=== PATIENT | male | born 1995 | race Caucasian/White ===

== ENCOUNTER 2016-05-17 11:30 | Emergency (ER) | payer OTHER ==
[~2016-05-17] VITALS: Ht 177.8 cm; Wt 113.1 kg
[2016-05-17 11:34] VITALS: Ht 177.8 cm; Wt 113.1 kg
[2016-05-17] MEDS ORDERED: NAPR1TAB9 PO (11:43)
[2016-05-17] MEDS ORDERED: OXYC-57 PO (11:43)
[2016-05-17 12:58] LABS: HEMATOCRIT 44.5 % (42-52); MEAN CELL VOLUME 84.9 fL (80-100); MEAN CORPUSCULAR HEMOGLOBIN 30.7 pg (25-34); MEAN CORPUSCULAR HGB CONC 36.2 g/dl (32-36); MEAN PLATELET VOLUME 10.5 fL (7.4-10.4); PLATELET COUNT 214 K/uL (130-400); RED BLOOD COUNT 5.24 M/uL (4.7-6.1); WHITE BLOOD COUNT 7.11 K/uL (4.8-10.8)
[2016-05-17 13:14] LABS: INR 1.1 (0.9-1.1); PARTIAL THROMBOPLASTIN RATIO 1.1; PROTHROMBIN TIME (PATIENT) 11.4 SECONDS (9.0-12.0)
[2016-05-17 13:16] LABS: BUN/CREATININE RATIO 15.9 (10-20); CALCIUM 9.6 mg/dl (8.5-10.1); CREATININE 0.82 mg/dl (0.60-1.40); POTASSIUM 4.1 mmol/L (3.5-5.1)
--- NOTE | 2016-05-17 13:25 | DIAGNOSTIC IMAGING REPORT ---
LEFT UPPER EXTREMITY VENOUS DOPPLER CLINICAL HISTORY: Left arm pain and weakness. Recent surgery. COMPARISON STUDY: No previous studies for comparison. FINDINGS: The left internal jugular, subclavian, axillary, brachial, basilic, radial and ulnar veins are patent. No thrombus is identified within the left upper extremity. IMPRESSION: No deep venous thrombus within the left upper extremity. Electronically signed by: Julio Iraheta M.D. 05/17/2016 1:23 PM Dictated Date/Time: 05/17/2016 1:22 PM
--- NOTE | 2016-05-17 13:27 | DIAGNOSTIC IMAGING REPORT ---
LEFT UPPER EXTREMITY ULTRASOUND CLINICAL HISTORY: Left arm pain and weakness. Recent left shoulder surgery. Palpable lump. COMPARISON STUDY: No previous studies for comparison. FINDINGS: No mass, fluid collection or other sonographic abnormality was identified within the posterior lateral aspect of the left upper arm at site of palpable abnormality. IMPRESSION: No sonographic abnormality identified within the posterior lateral aspect of the left upper arm at site of palpable abnormality. Electronically signed by: Julio Irahtea M.D. 05/17/2016 1:25 PM Dictated Date/Time: 05/17/2016 1:23 PM
[2016-05-17 13:29] LABS: ALB/GLOB RATIO 1.5 (0.9-2)
--- NOTE | 2016-05-17 14:22 | EMERGENCY ROOM VISIT NOTE ---
ED Visit Note First contact with patient: 12:18 CHIEF COMPLAINT: Left upper arm pain and swelling 2 days after shoulder surgery HISTORY OF PRESENT ILLNESS: Patient is a [id number] 21-year-old white male directed to the emergency department by his out of the area orthopedic surgeon for a possible DVT of the left upper extremity. Patient had arthroscopic labral repair surgery on April 13 by an orthopedic surgeon at the [facility]. He states that he has had an uneventful postoperative course. He is still wearing a sling/shoulder immobilizer. He is generally just using Aleve for discomfort. He is performing physical therapy exercises as instructed. He states that 2 days ago, he noted a "lump" in the left upper arm near his tricep. He called his surgeon and was told to come to the emergency department for evaluation. He notes some increased warmth, pain to palpation and feels like there is some induration over the area in question. He does also note some discomfort in the antecubital space and some discomfort in the anterior shoulder that comes very slightly into the chest. He denies any true chest pain, palpitations or shortness of breath. No back pain. No prior history of DVT or clotting disorder. He rates his pain a 4.5/ 10. REVIEW OF SYSTEMS:Review of systems as per HPI. All other systems reviewed were negative. 10 systems reviewed. PMH: Electronic medical records are reviewed and summarized as above/below. See Problem List. SOCIAL HISTORY: Patient is a college student who lives locally. Nonsmoker. PHYSICAL EXAM: Vital Signs: Reviewed Nurse's notes. CONSTITUTIONAL: Patient is a well-appearing 21-year-old white male who is awake and alert and in no acute distress. HEART: Regular rate and rhythm without murmurs, ectopy, gallops, or rubs. LUNGS: Clear to auscultation and breath sounds equal, no wheezes, rales, or rhonchi. NEUROLOGICAL: Alert oriented, coherent. PERRL, EOMs full, gait normal. EXTREMITIES: Left upper extremity is in a shoulder immobilizer. This was removed. He has well-healed arthroscopic surgical incisions over the anterior and lateral left shoulder without signs of infection. No significant soft tissue swelling, no erythema, increased warmth or induration. The area in question in the anterior lateral aspect of the left upper arm is slightly tender to palpation, there is no increased warmth or induration. No fluctuance. He does also have some generalized soft tissue discomfort in the biceps region and in the antecubital space, but there are no palpable cords or lymphangitic streaking noted. Pulses in the left upper extremity are easily palpable. They are symmetrical bilaterally. Capillary refills less than 2 seconds. Range of motion of the fingers, wrist and elbow are full and nontender. The shoulder range of motion is not assessed due to his post surgical status. EMERGENCY DEPARTMENT COURSE: Ultrasound exam of the left upper extremity does not demonstrate any evidence for DVT. Localized ultrasound examination over the area in question did not demonstrate any soft tissue abnormality. The patient was reassured. His symptoms could be related to a seroma or hematoma, possible muscle spasm due to his recent surgery. He does not have any evidence for septic joint, wound infection, cellulitis or superficial thrombophlebitis. He was encouraged to continue all of his postoperative instructions according to his surgeon, and to follow-up with his surgeon as he has scheduled. He was discharged home in good condition. LEFT UPPER EXTREMITY ULTRASOUND CLINICAL HISTORY: Left arm pain and weakness. Recent left shoulder surgery. Palpable lump. COMPARISON STUDY: No previous studies for comparison. FINDINGS: No mass, fluid collection or other sonographic abnormality was identified within the posterior lateral aspect of the left upper arm at site of palpable abnormality. IMPRESSION: No sonographic abnormality identified within the posterior lateral aspect of the left upper arm at site of palpable abnormality. LEFT UPPER EXTREMITY VENOUS DOPPLER CLINICAL HISTORY: Left arm pain and weakness. Recent surgery. COMPARISON STUDY: No previous studies for comparison. FINDINGS: The left internal jugular, subclavian, axillary, brachial, basilic, radial and ulnar veins are patent. No thrombus is identified within the left upper extremity. IMPRESSION: No deep venous thrombus within the left upper extremity. Problem List Surgical Problems: (1) History of arthroscopic surgery of shoulder Status: Resolved Current/Historical Medications Scheduled Naproxen (Aleve), 440 MG PO UD Scheduled PRN Oxycodone/Acetaminophen 5MG/325MG (Percocet 5MG/325MG), 1-2 TABLETS PO Q4 PRN for Pain Allergies Coded Allergies: No Known Allergies (Unverified , 05/17/16) Vital Signs Date Time Temp Pulse Resp B/P Pulse Ox O2 Delivery O2 Flow Rate FiO2 05/17/16 14:36 36.6 82 17 156/89 96 05/17/16 14:36 82 16 96 05/17/16 11:34 36.6 82 17 156/89 96 Room Air Laboratory Results 05/17/16 12:47 05/17/16 12:47 Test 05/17/16 12:47 Red Blood Count 5.24 M/uL (4.7-6.1) Mean Corpuscular Volume 84.9 fL (80-100) Mean Corpuscular Hemoglobin 30.7 pg (25-34) Mean Corpuscular Hemoglobin Concent 36.2 g/dl (32-36) RDW Standard Deviation 39.2 fL (36.4-46.3) RDW Coefficient of Variation 12.6 % (11.5-14.5) Mean Platelet Volume 10.5 fL (7.4-10.4) Prothrombin Time 11.4 SECONDS (9.0-12.0) Prothromb Time International Ratio 1.1 (0.9-1.1) Activated Partial Thromboplast Time 27.9 SECONDS (21.0-31.0) Partial Thromboplastin Ratio 1.1 Anion Gap 7.0 mmol/L (3-11) Est Creatinine Clear Calc Drug Dose 179.5 ml/min Estimated GFR () 146.5 Estimated GFR (Non- 126.4 BUN/Creatinine Ratio 15.9 (10-20) Calcium Level 9.6 mg/dl (8.5-10.1) Total Bilirubin 0.7 mg/dl (0.2-1) Aspartate Amino Transf (AST/SGOT) 18 U/L (15-37) Alanine Aminotransferase (ALT/SGPT) 56 U/L (12-78) Alkaline Phosphatase 92 U/L (45-117) Total Protein 7.9 gm/dl (6.4-8.2) Albumin 4.8 gm/dl (3.4-5.0) Globulin 3.1 gm/dl (2.5-4.0) Albumin/Globulin Ratio 1.5 (0.9-2) Departure Information Impression Primary Impression: Arm pain, left Referrals No Doctor, Assigned (PCP) Patient Instructions My [facility] Additional Instructions Continue all of your postoperative instructions according to your surgeon. Follow-up with your surgeon as you have scheduled. Return to the emergency department as needed.
[2016-05-17 14:36] VITALS: BP 156/89; PULSE 82; TEMP 36.6; O2SAT 96
== END 2016-05-17 14:39 | disposition home or self-care (01) ==
LOC: C.EDB 11:32 → C.EDD 14:39
DX: M79.602 Pain in left arm (principal)